=== PATIENT | male | born 1985 ===

== ENCOUNTER 2017-04-05 15:56 | Emergency (ER) | payer OTHER ==
[2017-04-05 16:29] VITALS: BP 120/77; PULSE 82; RESP 20; TEMP 98.5; O2SAT 97
[2017-04-05] MEDS ORDERED: Iohexol 240 (50 ml) PO ONE (18:16)
--- NOTE | 2017-04-05 18:20 | ED PDOC ---
HPI: Abdomen Time Seen by Provider: 04/05/17 17:52 Chief Complaint (Nursing): Abdominal Pain Chief Complaint (Provider): Vomiting History Per: Patient Additional Complaint(s): 32 yo male, no PMH, presents to ED with complaints of vomiting and a 50 lbs weight loss in the last 5 months. Pt reports that every time he eats, he vomits within 2 hours after. Pt denies any abdominal pain or nausea. Pt also notes an abdominal mass, which he believes to be a hernia- that comes and goes around his navel. Past Medical History Reviewed: Nursing Documentation, Vital Signs Vital Signs: Last Vital Signs Temp 98.5 F 04/05/17 16:25 Pulse 82 04/05/17 16:25 Resp 20 04/05/17 16:25 BP 120/77 04/05/17 16:25 Pulse Ox 97 04/05/17 18:23 - Medical History PMH: No Chronic Diseases - Surgical History Surgical History: No Surg Hx - Family History Family History: States: No Known Family Hx - Living Arrangements Living Arrangements: With Family - Social History Current smoker - smoking cessation education provided: Yes (1-2 ppd x 10 + years ) Alcohol: None Drugs: Denies - Allergies Allergies/Adverse Reactions: Allergies Allergy/AdvReac Type Severity Reaction Status Date / Time No Known Allergies Allergy Verified 04/05/17 16:25 Review of Systems ROS Statement: Except As Marked, All Systems Reviewed And Found Negative Constitutional: Positive for: Weight loss Gastrointestinal: Positive for: Vomiting Physical Exam - Reviewed Nursing Documentation Reviewed: Yes Vital Signs Reviewed: Yes - Physical Exam Appears: Positive for: Well, Non-toxic, No Acute Distress Head Exam: Positive for: ATRAUMATIC, NORMAL INSPECTION, NORMOCEPHALIC Skin: Positive for: Normal Color, Warm, DRY Eye Exam: Positive for: EOMI, Normal appearance, PERRL ENT: Positive for: Normal ENT Inspection Neck: Positive for: Normal, Painless ROM Cardiovascular/Chest: Positive for: Regular Rate, Rhythm Respiratory: Positive for: CNT, Normal Breath Sounds Gastrointestinal/Abdominal: Positive for: Normal Exam, Bowel Sounds, Soft, Hernia (small naima-umbilical ) Back: Positive for: Normal Inspection Extremity: Positive for: Normal ROM Neurologic/Psych: Positive for: Alert, Oriented - ECG O2 Sat by Pulse Oximetry: 97 Medical Decision Making Medical Decision Making: IV access established and diagnostics ordered. Pt denied nausea at this time, antipyretics withheld. 19:30- no labs resulted thus far. Pt tolerating PO contrast at this time. Case endorsed to LEONOR Moore at 20:00 pending diagnostic review and re-eval Disposition - Clinical Impression Clinical Impression: Weight loss, Vomiting - Patient ED Disposition Is Patient to be Admitted: No - Disposition Disposition: Transfer of Care ([facility]) Disposition Time: 19:26 Condition: STABLE - POA Present On Arrival: None
[2017-04-05] MEDS ORDERED: Iohexol 240 (50 ml) ONE (19:34)
[2017-04-05 20:06] LABS: BASO # 0.1 K/uL (0.0-0.2); BASO % 0.7 % (0.0-2.0); EOS # 0.2 K/uL (0.0-0.7); EOS % 3.1 % (0.0-4.0); HEMATOCRIT 46.9 % (35.0-51.0); LYMPH # 2.3 K/uL (1.0-4.3); LYMPH % 29.2 % (20.0-40.0); MEAN CORPUSCULAR HEMOGLOBIN 27.9 pg (27.0-31.0); MEAN CORPUSCULAR HGB CONC 32.8 g/dL (33.0-37.0); MEAN PLATELET VOLUME 8.8 fl (7.2-11.7); MONO # 0.7 K/uL (0.0-0.8); MONO % 8.6 % (0.0-10.0); NEUT # 4.7 K/uL (1.8-7.0); NEUT % 58.4 % (50.0-75.0); NRBC % 0.1 % (0.0-0.0); RED CELL DISTRIBUTION WIDTH 14.4 % (11.5-14.5)
[2017-04-05 20:11] LABS: ALB/GLOB RATIO 1.1 (1.0-2.1); ALKALINE PHOSPHATASE 81 U/L (38-126); ALT/SGPT 46 U/L (21-72); AMYLASE 101 U/L (30-110); AST/SGOT 37 U/L (17-59); BILIRUBIN,TOTAL 0.4 mg/dl (0.2-1.3); BLOOD UREA NITROGEN 10 mg/dl (9-20); CALCIUM 9.8 mg/dL (8.4-10.2); CARBON DIOXIDE 26 mmol/L (22-30); CHLORIDE 102 mmol/L (98-107); GFR AFRICAN-AMERICAN > 60; GLUCOSE,RANDOM 84 mg/dL (75-110); LIPASE 182 U/L (23-300); SODIUM 140 mmol/l (132-148); TOTAL PROTEIN 8.7 G/DL (6.3-8.2)
[2017-04-05 20:51] LABS: RBC URINE 5 /hpf (0-3); URINE BACTERIA RARE (<OCC); URINE BILIRUBIN NEGATIVE (NEGATIVE); URINE BLOOD NEGATIVE (NEGATIVE); URINE COLOR YELLOW (YELLOW); URINE GLUCOSE (UA) NEG (Normal); URINE KETONE NEGATIVE (NEGATIVE); URINE LEUKOCYTE ESTERASE NEG Leu/uL (Negative); URINE PROTEIN NEGATIVE (NEGATIVE); URINE UROBILINOGEN 0.2-1.0 mg/dL (0.2-1.0); WBC URINE 2 /hpf (0-5)
[2017-04-05] MEDS ORDERED: Sodium Chloride 0.9% 50 ML IV ONE (21:50)
[2017-04-05] MEDS ORDERED: Iohexol 300 100 ML IJ ONE (21:50)
--- NOTE | 2017-04-05 23:02 | ED PDOC ---
- Laboratory Results Result Diagrams: 04/05/17 19:50 04/05/17 19:50 - ECG O2 Sat by Pulse Oximetry: 97 - Progress ED Course And Treament: Case endorsed to typewriter ribbon winder from Leticia GALVEZ pending CT EXAM: CT Abdomen and Pelvis With Intravenous Contrast CLINICAL HISTORY: 32 years old, male; Pain; Abdominal pain; Periumbilical; Additional info: Vomiting, abdominal mass, 50 lb weight loss. Sent phy. Doc. With request TECHNIQUE: Axial computed tomography images of the abdomen and pelvis with intravenous contrast. This CT exam was performed using one or more of the following dose reduction techniques : automated exposure control, adjustment of the mA and/or kV according to patient size, and/ or use of iterative reconstruction technique. Coronal and sagittal reformatted images were created and reviewed. CONTRAST: 95 mL of [id number] administered intravenously. COMPARISON: No relevant prior studies available. FINDINGS: Lower thorax: The bilateral lung bases are clear. ABDOMEN: Liver: No acute findings. Fatty infiltration is identified. Gallbladder and bile ducts: The gallbladder is decompressed. No calcified stones. No significant intra- or extrahepatic biliary ductal dilation. Pancreas: Single phase evaluation of the pancreas is unremarkable, and enhances homogeneously. No ductal dilation. No discrete mass. Spleen: No acute findings. Adrenals: No acute findings. Kidneys and ureters: No acute findings. No hydronephrosis or renal calculi. No discrete solid mass. PELVIS: Bladder: No acute findings. Reproductive: No acute findings. Appendix: The contrast filled appendix is of normal caliber (series 3, image 122 ). ABDOMEN and PELVIS: Stomach and bowel: A fat and likely omental containing periumbilical hernia is identified, extending to the left of midline (series 3, image 118; series 602, image 95). Oral contrast extends to the level of the rectum, without evidence of obstruction. No mucosal thickening. Peritoneum: No significant fluid collection. No free air. Lymph nodes: Multiple minimally enlarged lymph nodes are identified within the retroperitoneum, as well as within the root of the mesentery, a nonspecific finding. Vasculature: Unremarkable. Bones: No acute fracture. IMPRESSION: Nonobstructing periumbilical hernia extending to the left of midline. Nonspecific enlargement of multiple lymph nodes within the retroperitoneum and root of the mesentery, as detailed above. Fatty infiltration of the liver. Thank you for allowing us to participate in the care of your patient. Patient educated on findings, advised follow up PMD/surgery. return to Ed for worsening/concerning symptoms. Disposition - Clinical Impression Clinical Impression: Weight loss, Vomiting, Periumbilical hernia - POA Present On Arrival: None - Disposition Referrals: Prem Tyler MD [Staff Provider] - Rinku Leija MD [Staff Provider] - Disposition: Routine/Home Disposition Time: 23:01 Condition: IMPROVED Instructions: Acute Nausea and Vomiting (ED), Ventral Hernia (ED)
--- NOTE | 2017-04-06 01:42 | CARD ---
APPROVED REPORT EKG Measurement Heart [id number] IL 184P33 [id number] <Conclusion> Normal sinus rhythm Possible Left atrial enlargement Borderline ECG
--- NOTE | 2017-04-06 09:55 | CT ---
PROCEDURE: CT Abdomen and pelvis dated 04/05/2017 HISTORY: vomiting, abdominal mass, 50 lb weight loss COMPARISON: Comparison made with CTA chest dated 12/11/2009 which did image the upper abdomen. TECHNIQUE: Contiguous axial images of the abdomen and pelvis performed following oral and intravenous injection of approximately 95 cc of Omnipaque 300 contrast material. Coronal and Sagittal reformats generated. Radiation dose: Total exam DLP = 1159.49 mGy-cm. This CT exam was performed using one or more of the following dose reduction techniques: Automated exposure control, adjustment of the mA and/or kV according to patient size, and/or use of iterative reconstruction technique. Contrast dose: 95 cc Omnipaque contrast material FINDINGS: LOWER THORAX: Lung bases are clear. No infiltrate effusion or basilar pneumothorax. There is a small hiatal hernia. Heart size within range of normal. No pericardial effusion. LIVER: Liver is mildly enlarged measuring nearly 20 cm in CC dimension. No obvious hepatic mass collection or calcification. There does appear to be mild diffuse fatty hepatic infiltration. Portal and splenic veins are opacified. GALLBLADDER AND BILE DUCTS: Gallbladder is physiologically distended. No evidence of intraluminal gallbladder calculi. PANCREAS: The visualized portions of the pancreas unremarkable. No evidence of pancreatic mass, collection, calcification or significant ductal dilatation. SPLEEN: Unremarkable. No splenomegaly. ADRENALS: No adrenal lesions. KIDNEYS AND URETERS: Kidneys demonstrate symmetric nephrograms. No evidence of nephrolithiasis or hydronephrosis. BLADDER: The urinary bladder is incompletely distended which may account slight thick-walled appearance. Muscular hypertrophy may contribute. Cystitis less likely though not completely excluded. Clinical correlation recommended. REPRODUCTIVE: Prostate gland and seminal vesicles unremarkable. APPENDIX: Normal-appearing appendix best seen on axial series 3 # 116- 133. BOWEL: Evaluation of the bowel is somewhat limited due to the incomplete opacification. The stomach is partially opacified though collapsed which presumably accounts for slight thick-walled appearance. Visualized loops of small bowel exhibit normal contour and caliber. No evidence acute mechanical small bowel obstruction. Oral contrast material has extended into the colon to the level of the rectum. There does appear to be a few scattered colonic diverticula along the sigmoid and distal descending colon. No radiographic evidence of acute diverticulitis. PERITONEUM: Unremarkable. No fluid collection. No free air. Small to medium sized fat containing umbilical hernia. There is also small fat containing right inguinal hernia. LYMPH NODES: There are multiple small to medium sized nonspecific retroperitoneal lymph nodes. In addition, a few small on to medium-sized nonspecific central mesenteric (root of mesentery and (lymph nodes are also seen VASCULATURE: Unremarkable. No aortic aneurysm. BONES: Mild multilevel degenerative spondylosis of the visualized lower thoracic and lumbar spine with a few scattered chronic appearing Schmorl's nodes. There are no acute compression fractures. OTHER FINDINGS: None. IMPRESSION: Mild hepatomegaly and fatty hepatic infiltration. There are a few scattered colonic diverticula arising from the sigmoid colon however no radiographic evidence of acute diverticulitis. Multiple small to medium-sized nonspecific retroperitoneal and mesenteric lymph nodes. Small to medium sized fat containing umbilical hernia. Small fat containing right inguinal hernia.
--- NOTE | 2017-04-06 11:36 | RAD ---
PROCEDURE: CHEST RADIOGRAPH, 1 VIEW HISTORY: abdominal pain COMPARISON: Comparison made with prior chest radiograph 12/19/2009 FINDINGS: LUNGS: Clear. PLEURA: No pneumothorax or pleural fluid seen. CARDIOVASCULAR: Heart appears upper limits of normal. OSSEOUS STRUCTURES: No significant abnormalities. VISUALIZED UPPER ABDOMEN: Normal. OTHER FINDINGS: None. IMPRESSION: No active disease.
== END 2017-04-05 23:15 | disposition home or self-care (01) ==
LOC: H.ER 15:56
DX: R11.10 Vomiting, unspecified (principal); K42.9 Umbilical hernia without obstruction or gangrene; R63.4 Abnormal weight loss; R10.9 Unspecified abdominal pain; F17.200 Nicotine dependence, unspecified, uncomplicated; R19.00 Intra-abdominal and pelvic swelling, mass and lump, unspecified site; K76.0 Fatty (change of) liver, not elsewhere classified

== ENCOUNTER 2018-04-22 10:48 | Inpatient (IN) | payer OTHER ==
[2018-04-22 11:28] VITALS: BMI 48.7
--- NOTE | 2018-04-22 11:42 | CP.PCM.PN ---
Subjective - Date & Time of Evaluation Date of Evaluation: 04/22/18 Time of Evaluation: 11:40 - Subjective Subjective: 33 year old male with no significant past medical history presenting to [facility] for surgical arthrodesis of his right ankle. Patient states that he sustained an ankle fracture about ten years ago which did not heal properly and has left his with residual pain and disability. He states that he has pain to the ankle with ambulation and also gets left ankle and foot pain due to overcompensation. Today he denies any severe pain, denies n/v/f/c/sob. Patient NPO since midnight yesterday. Objective - Vital Signs/Intake and Output Vital Signs (last 24 hours): Temp Pulse Resp BP Pulse Ox 98.2 F 93 H 20 128/86 94 L 04/22/18 11:20 04/22/18 11:22 04/22/18 11:20 04/22/18 11:20 04/22/18 11:20 - Constitutional Appears: Well, Non-toxic, No Acute Distress - Neurological Exam Neurological Exam: Oriented x3 - Psychiatric Exam Psychiatric exam: Normal Affect, Normal Mood - Additional Findings Additional findings: Right lower extremity exam DERMATOLGOGIC: Skin is intact, no open lesions or rashes present, skin color normal. VASCULAR: DP/PT pulses 2/4, DIRECTOR OF RADIO SERVICES<3 seconds, skin temperature within normal limits, there is pedal hair growth present, no edema of the foot or ankle present. NEUROLOGIC: Gross sensation and motor function intact ORTHOPEDIC: Negative pain on palpation to the foot or ankle at this time. No pain with passive or active ROM. Biomechanical exam: There is about 10 degrees of total ankle joint ROM, with crepitus noted. There is 20 degrees of STJ inversion, 10 degrees eversion present,without crepitus. Midfoot ROM is flexible with increased motion at the midtarsal joint. There is mild first ray hypermobility with jamming of the first MTP joint. Mild medial eminence present at first MTP. Lesser digits are mildly contracted but flexible. RCSP is 4 degrees everted. There is mild eversion upon stance. Gait is antalgic with inadequate ankle dorsiflexion ROM, there is abduction of the forefoot with medial arch collapse. Impression: severe post traumatic ankle arthritis. Patient to have right ankle arthrodesis Assessment and Plan - Assessment and Plan (Free Text) Assessment: 33 year old male with right ankle severe post traumatic arthritis Plan: Patient seen and evaluated, all questions answered. Patient aware and agreeable to procedure today All risks, benefits, complications and alternatives to surgical procedure discussed with patient, no guarantees given Patient NPO since midnight last night Patient to OR for right ankle arthrodedis
[2018-04-22] MEDS ORDERED: ceFAZolin IV 2 gm in Dextrose 2 GM/50 ML BAG IVPB ONE ×2 (11:53→13:13)
[2018-04-22] MEDS ORDERED: Bupivacaine 0.5% Inj(30mL) IJ ONE (11:53)
--- NOTE | 2018-04-22 11:53 | CP.SDSHP ---
Same Day Surgery H & P - History Proposed Procedure: Right ankle arthrodesis Pre-Op Diagnosis: Right ankle severe post traumatic arthritis - Previous Medical/Surgical History Previous Surgical History: None - Allergies Allergies: Allergies No Known Allergies Allergy (Verified 04/05/17 16:25) - Current Medications Current Medications: None - Physical Exam Vital Signs: Vital Signs 04/22/18 04/22/18 11:20 11:22 Temperature 98.2 F Pulse Rate 93 H 93 H Respiratory 20 Rate Blood Pressure 128/86 O2 Sat by Pulse 94 L Oximetry Mental Status: Alert & Oriented x3 Neuro: WNL Heart: WNL Lungs: WNL GI: WNL - Impression Impression: Patient to OR for right ankle arthrodesis Pt. Evaluated Today:Candidate for Anesthesia & Procedure: Yes - Date & Time Date: 04/22/18 Time: 11:52 Short Stay Discharge - Short Stay Discharge Admitting Diagnosis/Reason for Visit: M25.371/ M19.172/ S93.491A/ Disposition: HOME/ ROUTINE Referrals: FAMILY PROVIDER,NO [Primary Care Provider] -
--- NOTE | 2018-04-22 12:10 | CP.PCM.PN ---
Objective - Vital Signs/Intake and Output Vital Signs (last 24 hours): Temp Pulse Resp BP Pulse Ox 98.2 F 93 H 20 128/86 94 L 04/22/18 11:20 04/22/18 11:22 04/22/18 11:20 04/22/18 11:20 04/22/18 11:20 - Medications Medications: Current Medications Bupivacaine HCl (Marcaine 0.5%) 50 ml IJ ONCE ONE Stop: 04/22/18 11:54 Cefazolin Sodium/Dextrose (Ancef Iv 2 Gm Duplex) 2 gm in 50 mls @ 50 mls/hr IVPB ONCE ONE PRN Reason: Protocol Stop: 04/22/18 12:52
--- NOTE | 2018-04-22 12:10 | CP.SDSHP ---
Same Day Surgery H & P - Allergies Allergies: Allergies No Known Allergies Allergy (Verified 04/05/17 16:25) - Physical Exam Vital Signs: Vital Signs 04/22/18 04/22/18 11:20 11:22 Temperature 98.2 F Pulse Rate 93 H 93 H Respiratory 20 Rate Blood Pressure 128/86 O2 Sat by Pulse 94 L Oximetry Short Stay Discharge - Short Stay Discharge Admitting Diagnosis/Reason for Visit: M25.371/ M19.172/ S93.491A/ Disposition: HOME/ ROUTINE Referrals: FAMILY PROVIDER,NO [Primary Care Provider] -
[2018-04-22] MEDS ORDERED: Rocuronium 10 mg/ml (5 ml) ONE ×3 (12:55→14:49)
[2018-04-22] MEDS ORDERED: Midazolam 2 MG/2 ML VIAL ONE (12:55)
[2018-04-22] MEDS ORDERED: Propofol 10 mg/ml Inj (20 ML) ONE (12:55)
[2018-04-22] MEDS ORDERED: Succinylcholine 200 mg/10 ml Inj IV ONE (12:55)
[2018-04-22] MEDS ORDERED: Lidocaine 4% (Laryng-O-Jet) Kit MM ONE (12:59)
[2018-04-22] MEDS ORDERED: Lactated Ringer's 1,000 ML IV ONE ×4 (13:00→18:00)
[2018-04-22] MEDS ORDERED: Lidocaine 2% Inj (20ml) ONE (13:14)
[2018-04-22] MEDS ORDERED: Esmolol 100 mg/10ml Inj IV ONE (14:47)
[2018-04-22] MEDS ORDERED: Bupivacaine HCl 0.5% PF (30 ml) Inj ONE (16:10)
[2018-04-22] MEDS ORDERED: Cellulose Hemostat 2X3 Sheet TP ONE (17:23)
--- NOTE | 2018-04-22 19:22 | PCM.ANESB3 ---
Femoral Nerve Block - Femoral Nerve Block Date of Procedure: 04/22/18 Anesthesiologist: Imani Pre-Procedure Diagnosis: Right ankle severe post traumatic arthritis Post-Procedure Diagnosis: Same Procedure Performed: Femoral Nerve Block Right - Procedure Femoral Nerve Block: The procedure was explained to the patient that it is for the post-operative pain management. Consent was obtained after a thorough discussion with the patient regarding the benefits and possible complications of local anesthetic block of the femoral nerve at the inguinal crease area. The patient was brought to the operating room and standard monitors were applied. Time-out was held with the circulating nurse to confirm the correct surgery and the appropriate block. Under general anesthesia, patient was placed in supine position with fully extended lower extremities and the ___right groin exposed. The femoral artery was then carefully palpated. The ultrasound transducer was then applied to this area in the transverse plane and the femoral nerve was visualized lateral to the femoral artery and underneath the fascia iliaca. After thorough identification, the inguinal crease area was prepped with Chooraprep At this point, a #22 gauge Stimuplex 4-inch needle was inserted immediately lateral to the femoral artery pulse at the inguinal crease and advanced perpendicularly. The needle was inserted to the ultrasound transducer in-plane towards the femoral nerve in a [id number] direction. Needle advancement was performed carefully under direct ultrasound visualization. Nerve stimulator was used and twitch of the quadriceps muscle was obtained at current of _0.4____ MA. After negative aspiration, __2___cc of __0.25___% __bupivicaine was injected and this was followed with ___18___ cc of ___0.25____ % ___ bupivicaine . Under ultrasound guidance the local anesthetics were observed spreading below fascia iliaca and around the femoral nerve. The needle was removed intact. The patient tolerated the femoral nerve block well with stable vital signs and was prepared for emergence.
--- NOTE | 2018-04-22 19:23 | PCM.SURG1 ---
Surgeon's Initial Post Op Note - Surgeon's Notes Surgeon: Dr. Orellana Job Coaching: Dr. Campbell, Dr. Candelario, Dr. Mills Anesthesia Administered By: Dr. Quiroga Pre-Operative Diagnosis: right ankle severe post traumatic arthiritis with valgus milalignment Operative Findings: see dictation. materials: 2-0, 3-0, 4-0 vicryl, 3-0,4-0 nylon, 3cc of bone graft, internal fixation including screws and a plate Post-Operative Diagnosis: same Operation Performed: right ankle arthrodesis with plate and screw fixation with graft Specimen/Specimens Removed: none Estimated Blood Loss: EBL {In ML}: 500 Blood Products Given: N/A, Whole Blood Drains Used: No Drains Post-Op Condition: Fair Date of Surgery/Procedure: 04/22/18 Time of Surgery/Procedure: 19:25
--- NOTE | 2018-04-22 19:25 | PCM.ANESB2 ---
Popliteal Nerve Block - Popliteal Nerve Block Date of Procedure: 04/22/18 Anesthesiologist: Imani Pre-Procedure Diagnosis: Right ankle severe post traumatic arthritis Post-Procedure Diagnosis: Same Procedure Performed: Popliteal Nerve Block Right - Procedure Popliteal Nerve Block: This procedure was explained to the patient that it is for post-operative pain management. Consent was obtained after a thorough discussion with the patient regarding the benefits and possible complications of local anesthetic block of the sciatic nerve at the popliteal level. The patient was brought to the operating room and standard monitors are applied. Time-out was held with the circulating nurse to confirm the correct surgery and the appropriate block. Under general anesthesi, patient's operative leg was gently raised and supported and the groove in between the biceps femoris and vastus lateralis muscles was carefully palpated. The skin approximately 8cm above the popliteal crease was then marked. The ultrasound transducer was then applied to the posterior thigh approximately 8cm above the popliteal crease in the transverse plane and the sciatic nerve before its division was visualized lateral to the popliteal artery and in between the bicep femoris and semimembranosus/ semitendinosus muscles. After identification, the lateral portion of the thigh was prepped with Chloraprep. At this point, a # 21 gauge Stimuplex insulated 6 inch needle was inserted into pre-marked area and advanced in a perpendicular direction. The needle was inserted above the ultrasound transducer in-plane towards the sciatic nerve in a [id number] direction. Needle advancement was performed carefully under direct ultrasound visualization. Nerve stimulator was used and dorsiflexion of the __right___ foot was elicited at a current of __0.4___ MA. After repeated negative aspiration, _2____cc of ___0.5__ % ___bupivicaine was injected and this was flowed with ___23___ cc of __0.5____% __bupivicaine ___. Under ultrasound guidance the local anesthetics were observed surrounding sciatic nerve . The needle was removed intact. The patient tolerated the popliteal nerve block well with stable vital signs and was subsequently prepared for emergence.
[2018-04-22] MEDS ORDERED: HYDROmorphone 0.5 mg/0.5 ml ISec IVP PRN (19:31)
[2018-04-22] MEDS ORDERED: DiphenhydrAMINE 50 mg/ml Inj IVP PRN (19:31)
[2018-04-22] MEDS: Lactated Ringer's 1,000 ML IV SCH (21:23)
[2018-04-22 21:29] LABS: HEMOGLOBIN 13.5 g/dL (12.0-18.0)
--- NOTE | 2018-04-22 23:31 | CP.PCM.HP ---
History of Present Illness - History of Present Illness History of Present Illness: 33 yr old M with PMHx of right ankle fracture 10 yrs ago presented for surgery today due to severe right ankle arthritis with valgus malalignment. Denies chest pain, SOB, headache, dizziness, fevers or chills. Reports he has not seen a PMD in over 5 yrs (in the past saw Dr. Meier). Patient has no other complaints and denies any other PMHx. PMD: none Specialists: Paloma Weems (Podiatry) PMHx: none SurgHx: denies FMHx: mother has HTN and NIDDM, father hx unknown, siblings healthy SocHx: currenty tobacco use-14 pack yrs, denies Etoh or drugs Medications: denies Allergies: NKDA OR course: Triple arthrodesis of right ankle with ORIF, blood loss 500mL -placed in posterior splint, non weight bearing -Post-surgical H/H:13.5/41.1 Present on Admission - Present on Admission Any Indicators Present on Admission: No History of DVT/PE: No History of Uncontrolled Diabetes: No Urinary Catheter: No Decubitus Ulcer Present: No History Surgical Site Infection Following: None Review of Systems - Constitutional Constitutional: absent: Chills, Fever, Malaise - EENT Eyes: absent: Change in Vision, Diplopia Ears: absent: Decreased Hearing, Dizziness Nose/Mouth/Throat: absent: Nasal Congestion, Dysphagia, Neck Pain - Cardiovascular Cardiovascular: absent: Chest Pain, Dyspnea - Respiratory Respiratory: absent: Cough, Hemoptysis - Gastrointestinal Gastrointestinal: absent: Abdominal Pain, Nausea, Vomiting - Genitourinary Genitourinary: absent: Difficulty Urinating, Dysuria - Musculoskeletal Musculoskeletal: Arthralgias (right ankle) - Integumentary Integumentary: absent: Bleeding Lesions, Skin Ulcer, Wounds - Neurological Neurological: absent: Confusion, Dizziness, Headaches, Weakness - Endocrine Endocrine: absent: Polyphagia, Polyuria - Hematologic/Lymphatic Hematologic: absent: Easy Bleeding, Easy Bruising Past Patient History - Past Medical History & Family History Past Medical History?: No - Past Social History Smoking Status: Heavy Smoker > 10 Cigarettes Daily (14 pack yrs) Alcohol: None Drugs: Denies Home Situation {Lives}: With Family - CARDIAC Hx Cardiac Disorders: No - PULMONARY Hx Respiratory Disorders: No - NEUROLOGICAL Hx Neurological Disorder: No - HEENT Hx HEENT Problems: No - RENAL Hx Chronic Kidney Disease: No - ENDOCRINE/METABOLIC Hx Endocrine Disorders: No - HEMATOLOGICAL/ONCOLOGICAL Hx Blood Disorders: No - INTEGUMENTARY Hx Dermatological Problems: No - MUSCULOSKELETAL/RHEUMATOLOGICAL Hx Musculoskeletal Disorders: No - GASTROINTESTINAL Hx Gastrointestinal Disorders: No - GENITOURINARY/GYNECOLOGICAL Hx Genitourinary Disorders: No - PSYCHIATRIC Hx Psychophysiologic Disorder: No - SURGICAL HISTORY Hx Surgeries: No - ANESTHESIA Hx Anesthesia: No Hx Anesthesia Reactions: No Meds Allergies/Adverse Reactions: Allergies Allergy/AdvReac Type Severity Reaction Status Date / Time No Known Allergies Allergy Verified 04/05/17 16:25 Physical Exam - Constitutional Appears: No Acute Distress (obese) - Head Exam Head Exam: ATRAUMATIC, NORMOCEPHALIC - Eye Exam Eye Exam: EOMI, PERRL - ENT Exam ENT Exam: Mucous Membranes Moist - Neck Exam Neck exam: Positive for: Full Rom - Respiratory Exam Respiratory Exam: Clear to Auscultation Bilateral. absent: Rhonchi, Wheezes - Cardiovascular Exam Cardiovascular Exam: REGULAR RHYTHM, +S1, +S2 - GI/Abdominal Exam GI & Abdominal Exam: Normal Bowel Sounds, Soft (obese). absent: Tenderness - Extremities Exam Extremities exam: Positive for: full ROM (,normal exam of left foot) Additional comments: right foot in posterior splint, wrapped in SHABANA bandage - Back Exam Back exam: absent: CVA tenderness (L), CVA tenderness (R) - Neurological Exam Neurological exam: Alert, CN II-XII Intact (grossly intact), Oriented x3 - Psychiatric Exam Psychiatric exam: Normal Affect, Normal Mood - Skin Skin Exam: Dry, Intact, Normal Color, Warm Results - Vital Signs Recent Vital Signs: Last Vital Signs Temp 99.6 F 04/22/18 19:22 Pulse 113 H 04/22/18 23:00 Resp 25 H 04/22/18 23:00 BP 101/71 04/22/18 23:00 Pulse Ox 97 04/22/18 23:00 - Labs Result Diagrams: 04/22/18 21:24 Labs: Laboratory Results - last 24 hr 04/22/18 21:24 Hgb 13.5 Hct 41.1 Assessment & Plan - Assessment and Plan (Free Text) Assessment: 33 yr old M admitted s/p Triple arthrodesis of right ankle with ORIF with PMHx of right ankle fracture with severe right ankle arthritis and valgus malalignment. 1. Severe right ankle arthritis with valgus malalignment -POD # 0 s/p Triple arthrodesis of right ankle with ORIF -blood loss 500mL, Post-surgical H/H:13.5/41.1 -admit to medr -placed in posterior splint, non weight bearing with crutches, PT -will follow podiatry recommendation: Cefazolin 2g IV Q8, Tylenol 650mg PO Q4 PRN mild pain, ice and elevate, regular diet 2. DVT prophylaxis -Lovenox 40mg SC QD - Date & Time Date: 04/22/18 Time: 21:50
[2018-04-23] MEDS ORDERED: Oxycodone/Acetaminophen 5/325 mg Tab PO PRN (04:27)
[2018-04-23] MEDS: Oxycodone/Acetaminophen 5/325 mg Tab PO PRN ×3 (04:36→22:20)
[2018-04-23] MEDS: Lactated Ringer's 1,000 ML IV SCH (04:38)
[2018-04-23 08:24] LABS: BASO % 0.2 % (0.0-2.0); EOS # 0.1 K/uL (0.0-0.7); EOS % 0.5 % (0.0-4.0); HEMOGLOBIN 12.3 g/dL (12.0-18.0); MEAN CELL VOLUME 82.7 fl (80.0-94.0); MEAN CORPUSCULAR HEMOGLOBIN 27.6 pg (27.0-31.0); MEAN CORPUSCULAR HGB CONC 33.4 g/dL (33.0-37.0); MEAN PLATELET VOLUME 8.4 fl (7.2-11.7); MONO # 1.1 K/uL (0.0-0.8); MONO % 9.7 % (0.0-10.0); NEUT # 7.9 K/uL (1.8-7.0); NEUT % 71.6 % (50.0-75.0); NRBC % 0.1 % (0.0-0.0); RBC 4.45 Mil/uL (4.40-5.90)
[2018-04-23 08:33] LABS: ALB/GLOB RATIO 0.8 (1.0-2.1); ALBUMIN 3.1 g/dL (3.5-5.0); ALT/SGPT 39 U/L (21-72); AST/SGOT 45 U/L (17-59); BLOOD UREA NITROGEN 13 mg/dl (9-20); CALCIUM 8.5 mg/dL (8.4-10.2); GFR AFRICAN-AMERICAN > 60; GFR NON-AFRICAN AMERICAN > 60
[2018-04-23] MEDS ORDERED: Pneumococcal 23-Valent Vaccine IM ONE (09:00)
[2018-04-23] MEDS: ceFAZolin IV 2 gm in Dextrose 2 GM/50 ML BAG IVPB SCH ×2 (09:57→17:08)
--- NOTE | 2018-04-23 11:25 | RAD ---
PROCEDURE: Right Ankle Radiographs. HISTORY: s/p right ankle surgery COMPARISON: Comparison is made to the previous study dated 06/16/2009 FINDINGS: BONES: Status post internal fixation and fusion of the right tibiotalar joint by metallic plate and multiple screws at the anterior aspect of the joint. JOINTS: No evidence of dislocation. SOFT TISSUES: Soft tissue swelling is noted. OTHER FINDINGS: The right ankle is in cast. IMPRESSION: Status post internal fixation and fusion of the right talotibial joint.
--- NOTE | 2018-04-23 12:39 | CP.PCM.PN ---
Subjective - Date & Time of Evaluation Date of Evaluation: 04/23/18 Time of Evaluation: 12:39 - Subjective Subjective: 33 yr old M POD1 s/p Triple arthrodesis of right ankle with ORIF with PMHx of right ankle fracture with severe right ankle arthritis and valgus malalignment. Doing well today. Pain controlled. Eating breakfast. No complaints today, eager to start PT today. Objective - Vital Signs/Intake and Output Vital Signs (last 24 hours): Temp Pulse Resp BP Pulse Ox 98.1 F 91 H 20 125/81 96 04/23/18 08:51 04/23/18 08:51 04/23/18 08:51 04/23/18 08:51 04/23/18 08:51 - Medications Medications: Current Medications Acetaminophen (Tylenol 325mg Tab) 650 mg PO Q4 PRN PRN Reason: Pain, Mild (1-3) Enoxaparin Sodium (Lovenox) 40 mg SC DAILY TR PRN Reason: Protocol Cefazolin Sodium/Dextrose (Ancef Iv 2 Gm Duplex) 2 gm in 50 mls @ 50 mls/hr IVPB Q8 TR PRN Reason: Protocol Last Admin: 04/23/18 09:57 Dose: 50 mls/hr Oxycodone/Acetaminophen (Percocet 5/325 Mg Tab) 1 tab PO Q4 PRN PRN Reason: Pain, moderate (4-7) Stop: 04/26/18 04:28 Oxycodone/Acetaminophen (Percocet 5/325 Mg Tab) 2 tab PO Q6 PRN PRN Reason: Pain, severe (8-10) Stop: 04/26/18 04:29 Last Admin: 04/23/18 04:36 Dose: 2 tab - Labs Labs: 04/23/18 06:00 04/23/18 06:00 - Constitutional Appears: No Acute Distress - Head Exam Head Exam: ATRAUMATIC - Eye Exam Eye Exam: EOMI - ENT Exam ENT Exam: Mucous Membranes Moist - Neck Exam Neck Exam: Full ROM - Respiratory Exam Respiratory Exam: Clear to Ausculation Bilateral - Cardiovascular Exam Cardiovascular Exam: +S1, +S2 - GI/Abdominal Exam GI & Abdominal Exam: Soft - Extremities Exam Additional comments: right cast in place Able to move toes, sensation, intact n RLE - Neurological Exam Neurological Exam: Alert, Awake, CN II-XII Intact Neuro motor strength exam: Left Upper Extremity: 5, Right Upper Extremity: 5, Left Lower Extremity: 5 - Skin Skin Exam: Dry, Intact, Warm Assessment and Plan - Assessment and Plan (Free Text) Plan: 33 yr old M admitted s/p Triple arthrodesis of right ankle with ORIF with PMHx of right ankle fracture with severe right ankle arthritis and valgus malalignment. 1. Severe right ankle arthritis with valgus malalignment -POD # 1 s/p Triple arthrodesis of right ankle with ORIF -blood loss 500mL, Post-surgical H/H:13.5/41.1 -placed in posterior splint, non weight bearing with crutches, PT -will follow podiatry recommendation: Cefazolin 2g IV Q8, Tylenol 650mg PO Q4 PRN mild pain, ice and elevate, regular diet 2. DVT prophylaxis -Lovenox 40mg SC QD
--- NOTE | 2018-04-23 13:06 | CP.PCM.PN ---
Subjective - Date & Time of Evaluation Date of Evaluation: 04/23/18 Time of Evaluation: 13:06 - Subjective Subjective: Podiatry - Dr. Orellana 33 year old male seen and evaluated at bedside POD#1 right ankle arthrodesis ( DOS 04/22/18). Mother present at bedside. No acute events overnight. Patient states he was able to sleep well through the night, only had 1 short episode of pain. At present, patient states his leg is still numb from block; pain well- controlled. AO splint to RLE remains clean/dry/intact, elevated on pillows. Tolerating PO diet. States he has not had a BM yet. Denies N/V/F/D/C/SOB. Objective - Vital Signs/Intake and Output Vital Signs (last 24 hours): Temp Pulse Resp BP Pulse Ox 98.1 F 101 H 20 125/81 97 04/23/18 08:51 04/23/18 11:05 04/23/18 08:51 04/23/18 08:51 04/23/18 11:05 - Medications Medications: Current Medications Acetaminophen (Tylenol 325mg Tab) 650 mg PO Q4 PRN PRN Reason: Pain, Mild (1-3) Enoxaparin Sodium (Lovenox) 40 mg SC DAILY TR PRN Reason: Protocol Cefazolin Sodium/Dextrose (Ancef Iv 2 Gm Duplex) 2 gm in 50 mls @ 50 mls/hr IVPB Q8 TR PRN Reason: Protocol Last Admin: 04/23/18 09:57 Dose: 50 mls/hr Oxycodone/Acetaminophen (Percocet 5/325 Mg Tab) 1 tab PO Q4 PRN PRN Reason: Pain, moderate (4-7) Stop: 04/26/18 04:28 Oxycodone/Acetaminophen (Percocet 5/325 Mg Tab) 2 tab PO Q6 PRN PRN Reason: Pain, severe (8-10) Stop: 04/26/18 04:29 Last Admin: 04/23/18 04:36 Dose: 2 tab - Labs Labs: 04/23/18 06:00 04/23/18 06:00 - Constitutional Appears: Well, Non-toxic, No Acute Distress - Extremities Exam Additional comments: AO splint clean/dry/intact NVSI to digits No pain upon calf squeeze - Neurological Exam Neurological Exam: Alert, Awake, Oriented x3 - Psychiatric Exam Psychiatric exam: Normal Affect, Normal Mood Assessment and Plan - Assessment and Plan (Free Text) Assessment: 33 year old male POD#1 right ankle arthrodesis (DOS 04/22/18) Plan: Patient seen and evaluated Discussed with attending, Dr. Orellana Febrile overnight Tmax 101.1, WBC 11.0; likely reactive - will continue to monitor R ankle XR: s/p talotibial fusion Ancef - dc after 3 doses Anticoagulation - Lovenox 40mg SC AO splint maintained - plan to change tomorrow Continue ice and elevation Encourage use of incentive spirometer 10x/hour PT consulted, NWB RLE with crutches -Patient refused today Podiatry will continue to follow
[2018-04-23] MEDS: Enoxaparin 40 mg Syringe SC SCH (16:02)
[2018-04-24] MEDS: ceFAZolin IV 2 gm in Dextrose 2 GM/50 ML BAG IVPB SCH ×2 (00:38→08:43)
[2018-04-24] MEDS: Oxycodone/Acetaminophen 5/325 mg Tab PO PRN ×3 (05:50→22:20)
[2018-04-24 07:43] LABS: ALB/GLOB RATIO 0.8 (1.0-2.1); ALBUMIN 3.2 g/dL (3.5-5.0); ALT/SGPT 36 U/L (21-72); AST/SGOT 55 U/L (17-59); BLOOD UREA NITROGEN 11 mg/dl (9-20); CALCIUM 8.3 mg/dL (8.4-10.2); GFR AFRICAN-AMERICAN > 60; GFR NON-AFRICAN AMERICAN > 60
[2018-04-24] MEDS: Enoxaparin 40 mg Syringe SC SCH (08:41)
[2018-04-24 08:48] LABS: HEMOGLOBIN 11.5 g/dL (12.0-18.0); MEAN CELL VOLUME 83.3 fl (80.0-94.0); MEAN CORPUSCULAR HEMOGLOBIN 27.5 pg (27.0-31.0); RBC 4.17 Mil/uL (4.40-5.90); RED CELL DISTRIBUTION WIDTH 14.2 % (11.5-14.5)
--- NOTE | 2018-04-24 11:52 | CP.PCM.PN ---
Subjective - Date & Time of Evaluation Date of Evaluation: 04/24/18 Time of Evaluation: 11:52 - Subjective Subjective: Podiatry - Dr. Orellana 33 year old male seen and evaluated at bedside POD#2 right ankle arthrodesis ( DOS 04/22/18). Friend present at bedside. No acute events overnight. Patient states he was able to tolerate pain after block subsided. Per nursing, patient unable to participate in physical therapy yesterday. AO splint to RLE remains clean/dry/intact, elevated on pillows. Tolerating PO diet. Denies N/V/F/D/C/SOB. Objective - Vital Signs/Intake and Output Vital Signs (last 24 hours): Temp Pulse Resp BP Pulse Ox 98.6 F 58 L 20 134/78 97 04/24/18 08:35 04/24/18 08:35 04/24/18 08:35 04/24/18 08:35 04/24/18 08:35 - Medications Medications: Current Medications Acetaminophen (Tylenol 325mg Tab) 650 mg PO Q4 PRN PRN Reason: Pain, Mild (1-3) Last Admin: 04/24/18 10:59 Dose: 650 mg Enoxaparin Sodium (Lovenox) 40 mg SC DAILY TR PRN Reason: Protocol Last Admin: 04/24/18 08:41 Dose: 40 mg Oxycodone/Acetaminophen (Percocet 5/325 Mg Tab) 1 tab PO Q4 PRN PRN Reason: Pain, moderate (4-7) Stop: 04/26/18 04:28 Oxycodone/Acetaminophen (Percocet 5/325 Mg Tab) 2 tab PO Q6 PRN PRN Reason: Pain, severe (8-10) Stop: 04/26/18 04:29 Last Admin: 04/24/18 05:50 Dose: 2 tab - Labs Labs: 04/24/18 05:30 04/24/18 05:30 - Constitutional Appears: Well, Non-toxic, No Acute Distress - Extremities Exam Additional comments: Right lower extremity exam DERMATOLGOGIC: Incisions noted to anterior ankle, lateral ankle, and medial ankle appear to be well-coapted with sutures intact and no wound dehiscence noted; no drainage present; minimal erythema present. VASCULAR: DP pulse 2/4, PT pulse nonpalpable secondary to edema, [employer]<3 seconds, skin temperature within normal limits, there is pedal hair growth present, non- pitting edema noted to ankle extending distally into digits NEUROLOGIC: Gross sensation and motor function intact ORTHOPEDIC: s/p ankle fusion. Digital ROM present. Tenderness to palpation to incision sites. - Neurological Exam Neurological Exam: Alert, Awake, Oriented x3 - Psychiatric Exam Psychiatric exam: Normal Affect, Normal Mood Assessment and Plan - Assessment and Plan (Free Text) Assessment: 33 year old male POD#2 right ankle arthrodesis (DOS 04/22/18) Plan: Patient seen and evaluated Discussed with attending, Dr. Orellana Afebrile, WBC 8.0 R ankle XR: s/p talotibial fusion Completed course of Ancef Anticoagulation - Lovenox 40mg SC AO splint reapplied Continue ice and elevation Encourage use of incentive spirometer 10x/hour PT consulted, NWB RLE with crutches -Patient refused yesterday, will encourage PT tomorrow Patient to follow up with Dr. Orellana in office within 1 week of discharge Podiatry will continue to follow
--- NOTE | 2018-04-24 12:04 | CP.PCM.PN ---
Subjective - Date & Time of Evaluation Date of Evaluation: 04/24/18 Time of Evaluation: 09:55 - Subjective Subjective: Patient seen and examined this morning, POD2. NAD, patient was walking back from bathroom to bed, had a BM. Patient denies any acute events over night, tolerating PO intake, denies any fever/c/n/v, chest pain, dizziness, SOB, abdominal pain or urinary symptoms. Pain is well controlled. Objective - Vital Signs/Intake and Output Vital Signs (last 24 hours): Temp Pulse Resp BP Pulse Ox 98.6 F 58 L 20 134/78 97 04/24/18 08:35 04/24/18 08:35 04/24/18 08:35 04/24/18 08:35 04/24/18 08:35 - Medications Medications: Current Medications Acetaminophen (Tylenol 325mg Tab) 650 mg PO Q4 PRN PRN Reason: Pain, Mild (1-3) Last Admin: 04/24/18 10:59 Dose: 650 mg Enoxaparin Sodium (Lovenox) 40 mg SC DAILY TR PRN Reason: Protocol Last Admin: 04/24/18 08:41 Dose: 40 mg Oxycodone/Acetaminophen (Percocet 5/325 Mg Tab) 1 tab PO Q4 PRN PRN Reason: Pain, moderate (4-7) Stop: 04/26/18 04:28 Oxycodone/Acetaminophen (Percocet 5/325 Mg Tab) 2 tab PO Q6 PRN PRN Reason: Pain, severe (8-10) Stop: 04/26/18 04:29 Last Admin: 04/24/18 05:50 Dose: 2 tab - Labs Labs: 04/24/18 05:30 04/24/18 05:30 - Constitutional Appears: No Acute Distress - Head Exam Head Exam: NORMAL INSPECTION - Eye Exam Eye Exam: Normal appearance - ENT Exam ENT Exam: Mucous Membranes Moist - Neck Exam Neck Exam: Normal Inspection - Respiratory Exam Respiratory Exam: Clear to Ausculation Bilateral, NORMAL BREATHING PATTERN - Cardiovascular Exam Cardiovascular Exam: REGULAR RHYTHM, +S1, +S2 - GI/Abdominal Exam GI & Abdominal Exam: Soft, Normal Bowel Sounds - Extremities Exam Additional comments: Right cast in place Able to move toes, Decreased sensory right toes - Back Exam Back Exam: absent: CVA tenderness (L), CVA tenderness (R) - Neurological Exam Neurological Exam: Alert, Awake, Oriented x3 - Psychiatric Exam Psychiatric exam: Normal Affect - Skin Skin Exam: Dry, Intact, Normal Color, Warm Assessment and Plan - Assessment and Plan (Free Text) Assessment: A/P: 33 yr old M admitted s/p POD2, Triple arthrodesis of right ankle with ORIF with PMHx of right ankle fracture with severe right ankle arthritis and valgus malalignment. Severe right ankle arthritis with valgus malalignment -POD # 2 s/p Triple arthrodesis of right ankle with ORIF -S/p Nerve block -H/H:11.5/34.7 -S/p Cefazolin -placed in posterior splint, non weight bearing with crutches, follow up PT, possible dressing change today -will follow podiatry recommendation: Percocet, Tylenol 650mg PO Q4 PRN mild pain, ice and elevate, regular diet, Incentive SpiroM -Continue pain management DVT prophylaxis -Lovenox 40mg SC
[2018-04-25 06:18] LABS: HEMOGLOBIN 11.8 g/dL (12.0-18.0); MEAN CELL VOLUME 83.2 fl (80.0-94.0); MEAN CORPUSCULAR HEMOGLOBIN 28.3 pg (27.0-31.0); RBC 4.17 Mil/uL (4.40-5.90); RED CELL DISTRIBUTION WIDTH 13.9 % (11.5-14.5); WHITE BLOOD COUNT 6.3 K/uL (4.8-10.8)
[2018-04-25 06:26] LABS: ALB/GLOB RATIO 0.8 (1.0-2.1); ALBUMIN 3.5 g/dL (3.5-5.0); ALT/SGPT 39 U/L (21-72); AST/SGOT 56 U/L (17-59); BLOOD UREA NITROGEN 10 mg/dl (9-20); CALCIUM 8.9 mg/dL (8.4-10.2); GFR AFRICAN-AMERICAN > 60; GFR NON-AFRICAN AMERICAN > 60
--- NOTE | 2018-04-25 07:38 | OP ---
PROCEDURE DATE: 04/22/2018 PREOPERATIVE DIAGNOSIS: Right ankle posttraumatic arthritis. POSTOPERATIVE DIAGNOSIS: Right ankle posttraumatic arthritis. NAME OF PROCEDURE: Right ankle arthrodesis. SURGEON: Paloma Orellana DPM CONTINUOUS IMPROVEMENT ENGINEER: Daniela Campbell DPM TYPE OF ANESTHESIA: General. ANESTHESIA ADMINISTERED BY: Colt Quiroga MD INDICATION: The patient is a 33-year-old male with the above-mentioned diagnosis. The patient has exhausted conservative treatments at this time and is now requesting surgical intervention. The patient signed the consent. After careful explanation of risks, benefits, complications, and alternatives for surgical procedure, no guarantees were given nor implied. A 2 g of Ancef IV was given to the patient prior to the procedure, n.p.o. status was confirmed prior to taking the patient to the operating room. PREPARATION: The patient was brought to the operating room and placed on the operating room table in supine position. A well-padded pneumatic thigh tourniquet was placed on the patient's right thigh. After induction of sedation, the right lower extremity was prepped and draped in usual sterile manner and the procedure began. PROCEDURE: Right ankle arthrodesis. Attention was directed to the anterior aspect of the right ankle where an approximately 10 cm linear longitudinal incision was created as the anterior aspect of the ankle joint located between the tibialis anterior and the extensor hallucis longus tendon. The incision began proximal to the ankle joint and extended distally towards the talonavicular joint. The incision was given to the subcutaneous tissues with care being taken to identify and retract all vital neurovascular structures. All bleeders were cauterized and ligated as necessary. At this time, a longitudinal incision was created just lateral to the tibialis anterior tendon, the tendon was then mobilized medially and the incision was deepened through the layer of tissue. All the neurovascular structures were carefully tied or retracted. Once this was completed, a linear capsular incision was created, the capsular structures were retracted medially and laterally thus exposing the ankle joint intraoperative site. Using a Hoang elevator, the capsular incision was then freed up all the way medially and all the way laterally exposing the medial lateral gutters into the operative field. Once this was complete, full visualization of the anterior ankle joint was achieved. At this time, the retractor from the [employer] was used, this was placed on the medial aspect of the ankle and the ankle was carefully distracted in order to provide access to the joint. It was noted that the joint was in a severe valgus malalignment with syndesmotic widening as well as decreased joint space being present. The articular cartilage was severely damaged. At this time, curved osteotomes were used to carefully remove the articular cartilage from the talus and the tibial plafond. This process was augmented using a large curette. Once this process was completed, the medial lateral gutters were examined. The medial lateral gutters were thoroughly divided of all articular cartilage as well as all fibrous tissue and ligamentous structure, which were in the way of positioning the ankle. Once all this was completed, the ankle was manipulated under C-arm guidance into a neutral position with the talus underneath the tibia at 90 degrees. Once this was achieved, a K-wire was driven from proximal medial to distal lateral from the tibia to the talus in order to serve as a guidewire. Once this was done, a second guidewire was inserted from lateral to medial. The positioning of the ankle was checked under fluoroscopy and was noted to be in proper position. Next, the first guidewire was overdrilled with the drill from the 6.5 cannulated [employer] . Once this was done, countersink was performed and the screw size was measured to be a 50 mm 6.5 headed screw. The screw was inserted over the guidewire with excellent compression of the . Once this was done, positioning was then again checked under fluoroscopy and it was noted to be maintained. At this time, the [employer] universal anterior fusion plate was selected from the . The plate was provisionally locked on to the ankle using and positioning was checked under fluoroscopy. Once proper positioning was obtained, locking and nonlocking screws were inserted following standard AO principles and techniques. A 4.5 locking screws measuring 40 mm, 45 mm, and 36 mm were inserted as well as a nonlocking 3.5 26 mm screw. Prior to putting the plate on the ankle, [employer] Augment was inserted into the ankle joint as well. Following application of plate and all the screws, the guidewires were removed. The wound was copiously irrigated with normal sterile saline. The deep tissues were closed using 2-0 Vicryl, subcuticular closure was done using 3-0 Vicryl, and skin was closed using 3-0 nylon in simple suture fashion. The skin was dressed using Xeroform, 4x4's, ABD, Kerlix, and a posterior splint was applied. POSTOPERATIVE CONDITION: The patient tolerated the anesthesia and procedure well and was escorted to the recovery room with vital signs stable and neurovascular status intact to the right lower extremity. This patient will be admitted and followed carefully on the floor by Dr. Orellana. Daniela Campbell DPM Paloma Orellana DPM
[2018-04-25 08:04] VITALS: BP 130/84; PULSE 84; RESP 20; TEMP 97.9; O2SAT 97
[2018-04-25] MEDS: Enoxaparin 40 mg Syringe SC SCH (08:53)
--- NOTE | 2018-04-25 09:15 | CP.PCM.PN ---
Subjective - Date & Time of Evaluation Date of Evaluation: 04/25/18 Time of Evaluation: 08:30 - Subjective Subjective: Patient seen and examined this morning. Objective - Vital Signs/Intake and Output Vital Signs (last 24 hours): Temp Pulse Resp BP Pulse Ox 97.9 F 84 20 130/84 97 04/25/18 08:02 04/25/18 08:02 04/25/18 08:02 04/25/18 08:02 04/25/18 08:02 - Medications Medications: Current Medications Acetaminophen (Tylenol 325mg Tab) 650 mg PO Q4 PRN PRN Reason: Pain, Mild (1-3) Last Admin: 04/25/18 07:19 Dose: 650 mg Enoxaparin Sodium (Lovenox) 40 mg SC DAILY TR PRN Reason: Protocol Last Admin: 04/25/18 08:53 Dose: 40 mg Oxycodone/Acetaminophen (Percocet 5/325 Mg Tab) 1 tab PO Q4 PRN PRN Reason: Pain, moderate (4-7) Stop: 04/26/18 04:28 Oxycodone/Acetaminophen (Percocet 5/325 Mg Tab) 2 tab PO Q6 PRN PRN Reason: Pain, severe (8-10) Stop: 04/26/18 04:29 Last Admin: 04/24/18 22:20 Dose: 2 tab - Labs Labs: 04/25/18 06:00 04/25/18 06:00
--- NOTE | 2018-04-25 10:56 | RAD ---
PROCEDURE: Fluoroscopy in excess of 1 hour HISTORY: ANKLE COMPARISON: Open reduction internal fixation/ fusion right tibiotalar joint. TECHNIQUE: Standard protocol for this study/examination. FINDINGS: Submitted images from the current procedure: 28.0 IMPRESSION: Open reduction procedure fluoroscopy in excess of 1 hour utilize.
--- NOTE | 2018-04-25 11:23 | CP.PCM.PN ---
Subjective - Date & Time of Evaluation Date of Evaluation: 04/25/18 Time of Evaluation: 13:00 - Subjective Subjective: Podiatry Progress Note- Dr. Orellana 33 year old male seen and evaluated at bedside POD#3 right ankle arthrodesis ( DOS 04/22/18). Friend present at bedside during visitation. Patient is laying comfortably in bed, in NAD, and AAOx3. Patient reports that his pain has decreased, rating his pain 0/10 on the VAS scale during visitation. Patient reports he has been taking Tylenol which has been helped. Patient reports he was seen by physical therapy. Reports he did well. Was able to ambulate, NWB with crutches. AO splint to RLE remains clean/dry/intact, elevated on pillows. Tolerating PO diet. Denies N/V/F/D/C/SOB/CP. Objective - Vital Signs/Intake and Output Vital Signs (last 24 hours): Temp Pulse Resp BP Pulse Ox 97.9 F 84 20 130/84 97 04/25/18 08:02 04/25/18 08:02 04/25/18 08:02 04/25/18 08:02 04/25/18 08:02 - Medications Medications: Current Medications Acetaminophen (Tylenol 325mg Tab) 650 mg PO Q4 PRN PRN Reason: Pain, Mild (1-3) Last Admin: 04/25/18 07:19 Dose: 650 mg Enoxaparin Sodium (Lovenox) 40 mg SC DAILY TR PRN Reason: Protocol Last Admin: 04/25/18 08:53 Dose: 40 mg Oxycodone/Acetaminophen (Percocet 5/325 Mg Tab) 1 tab PO Q4 PRN PRN Reason: Pain, moderate (4-7) Stop: 04/26/18 04:28 Oxycodone/Acetaminophen (Percocet 5/325 Mg Tab) 2 tab PO Q6 PRN PRN Reason: Pain, severe (8-10) Stop: 04/26/18 04:29 Last Admin: 04/24/18 22:20 Dose: 2 tab - Labs Labs: 04/25/18 06:00 04/25/18 06:00 - Constitutional Appears: Well, Non-toxic, No Acute Distress - Extremities Exam Extremities Exam: absent: Calf Tenderness Additional comments: AO splint clean/dry/intact NVSI to digits, able to wiggle toes No pain upon calf squeeze Temperature WNL - Neurological Exam Neurological Exam: Alert, Awake, Oriented x3 - Psychiatric Exam Psychiatric exam: Normal Affect, Normal Mood Assessment and Plan - Assessment and Plan (Free Text) Assessment: 33 year old male POD#3 right ankle arthrodesis (DOS 04/22/18) Plan: Patient seen and evaluated Discussed with attending, Dr. Orellana Afebrile, WBC 6.3 R ankle XR: s/p talotibial fusion Completed course of Ancef Anticoagulation - Lovenox 40mg SC while in house Continue ice and elevation Encourage use of incentive spirometer 10x/hour, explained to patient to continue when at home NWB RLE with crutches Do not get wet, keep clean dry and intact Seen by PT today- Pt did well. Per PT, patient is safe for discharge home from PT perspect Patient was given scripts for outpatient antibiotics, Lovenox 40 mg SC, and pain medication by Dr. Orellana in her office prior to surgery Instructed patient to fill scripts today, educated on use, and to start tomorrow. Patient is stable per podiatry standpoint for discharge Patient to follow up with Dr. Orellana in office within 1 week of discharge in her office
--- NOTE | 2018-04-25 15:18 | CP.PCM.DIS ---
Provider - Provider Date of Admission: 04/22/18 21:53 Attending physician: Lisa Carson MD Primary care physician: NO FAMILY PROVIDER Consults: None Time Spent in preparation of Discharge (in minutes): 40 Diagnosis - Discharge Diagnosis (1) Arthritis of right ankle Status: Chronic (2) Valgus deformity, not elsewhere classified, right ankle Status: Chronic (3) S/P ankle arthrodesis Status: Acute Comment: Right Ankle Hospital Course - Lab Results Lab Results: Most Recent Lab Values WBC 6.3 K/uL (4.8-10.8) 04/25/18 06:00 RBC 4.17 Mil/uL (4.40-5.90) L 04/25/18 06:00 Hgb 11.8 g/dL (12.0-18.0) L 04/25/18 06:00 Hct 34.7 % (35.0-51.0) L 04/25/18 06:00 MCV 83.2 fl (80.0-94.0) 04/25/18 06:00 MCH 28.3 pg (27.0-31.0) 04/25/18 06:00 MCHC 34.0 g/dL (33.0-37.0) 04/25/18 06:00 RDW 13.9 % (11.5-14.5) 04/25/18 06:00 Plt Count 146 K/uL (130-400) 04/25/18 06:00 MPV 8.4 fl (7.2-11.7) 04/23/18 06:00 Neut % (Auto) 71.6 % (50.0-75.0) 04/23/18 06:00 Lymph % (Auto) 18.0 % (20.0-40.0) L 04/23/18 06:00 [place] % (Auto) 9.7 % (0.0-10.0) 04/23/18 06:00 Eos % (Auto) 0.5 % (0.0-4.0) 04/23/18 06:00 Baso % (Auto) 0.2 % (0.0-2.0) 04/23/18 06:00 Neut # (Auto) 7.9 K/uL (1.8-7.0) H 04/23/18 06:00 Lymph # (Auto) 2.0 K/uL (1.0-4.3) 04/23/18 06:00 [place] # (Auto) 1.1 K/uL (0.0-0.8) H 04/23/18 06:00 Eos # (Auto) 0.1 K/uL (0.0-0.7) 04/23/18 06:00 Baso # (Auto) 0.0 K/uL (0.0-0.2) 04/23/18 06:00 Sodium 136 mmol/l (132-148) 04/25/18 06:00 Potassium 4.1 MMOL/L (3.6-5.0) 04/25/18 06:00 Chloride 98 mmol/L (98-107) 04/25/18 06:00 Carbon Dioxide 29 mmol/L (22-30) 04/25/18 06:00 Anion Gap 13 (10-20) 04/25/18 06:00 BUN 10 mg/dl (9-20) 04/25/18 06:00 Creatinine 0.8 mg/dl (0.8-1.5) 04/25/18 06:00 Est GFR ( Amer) > 60 04/25/18 06:00 Est GFR (Non-Af Amer) > 60 04/25/18 06:00 Random Glucose 134 mg/dL (75-110) H 04/25/18 06:00 Hemoglobin A1c 7.9 % (4.2-6.5) H 04/25/18 06:00 Calcium 8.9 mg/dL (8.4-10.2) 04/25/18 06:00 Total Bilirubin 0.6 mg/dl (0.2-1.3) 04/25/18 06:00 AST 56 U/L (17-59) 04/25/18 06:00 ALT 39 U/L (21-72) 04/25/18 06:00 Alkaline Phosphatase 81 U/L (38-126) 04/25/18 06:00 Total Protein 7.7 G/DL (6.3-8.2) 04/25/18 06:00 Albumin 3.5 g/dL (3.5-5.0) 04/25/18 06:00 Globulin 4.2 gm/dL (2.2-3.9) H 04/25/18 06:00 Albumin/Globulin Ratio 0.8 (1.0-2.1) L 04/25/18 06:00 - Hospital Course Hospital Course: 33 yr old M with PMHx of right ankle fracture 10 yrs ago admitted for right ankle surgery due to severe right ankle arthritis with valgus malalignment. Patient is s/p day#3, right ankle arthrodesis with plate and screw fixation with graft and popliteal nerve block. Normal post op progression, no complications, patient was able to perform well in PT. Pain is well controlled, s/p ancef, NWB RLE with crutches. Patient is cleared for discharge by PT and podiatry, patient to follow up with Dr. Orellana, Podiatry as out patient. Continue DVT ppx, antibiotics and pain management as per Dr. Orellana. Follow up Dr. Orellana in one week. Discharge Exam - Head Exam Head Exam: NORMAL INSPECTION - Eye Exam Eye Exam: Normal appearance, PERRL Pupil Exam: NORMAL ACCOMODATION - ENT Exam ENT Exam: Mucous Membranes Moist - Neck Exam Neck exam: Full Rom - Respiratory Exam Respiratory Exam: Clear to PA & Lateral, NORMAL BREATHING PATTERN - Cardiovascular Exam Cardiovascular Exam: REGULAR RHYTHM - GI/Abdominal Exam GI & Abdominal Exam: Normal Bowel Sounds - Extremities Exam Additional comments: AO splint clean/dry/intact on right able to wiggle toes, sensory intact No pain upon calf squeeze - Back Exam Back exam: absent: CVA tenderness (L), CVA tenderness (R) - Neurological Exam Neurological exam: Alert, Oriented x3 - Psychiatric Exam Psychiatric exam: Normal Affect, Normal Mood - Skin Skin Exam: Dry, Intact, Normal Color Discharge Plan - Follow Up Plan Condition: GOOD Disposition: HOME/ ROUTINE Instructions: Arthrodesis of Foot and Ankle, Open Surgery, Weight-Bearing Restrictions, Going Up and Down Curbs or Stairs With a Walker or Crutches Additional Instructions: follow up with primary MD and surgeon 1 week Referrals: FAMILY PROVIDER,NO [Primary Care Provider] - Paloma Orellana DPM [Staff Provider] -
== END 2018-04-25 14:23 | disposition home or self-care (01) | DRG 494 ==
LOC: H.OPSURG 10:48 → H.MEDSURG1 21:53
PROVIDERS: ADMIT Family Medicine Geriatric Medicine; ATTEND Family Medicine Geriatric Medicine
PROC: 0SGF0ZZ (ICD-10-PCS; principal; 2018-04-22 12:30)
PROC: 3E0T3BZ Introduction of Anesthetic Agent into Peripheral Nerves and Plexi, Percutaneous Approach (ICD-10-PCS; 2018-04-22 12:30)
PROC: 3E0T3BZ Introduction of Anesthetic Agent into Peripheral Nerves and Plexi, Percutaneous Approach (ICD-10-PCS; 2018-04-22 12:30)
PROC: 3E0234Z Introduction of Serum, Toxoid and Vaccine into Muscle, Percutaneous Approach (ICD-10-PCS; 2018-04-23)
DX: M12.571 Traumatic arthropathy, right ankle and foot (principal); M21.071 Valgus deformity, not elsewhere classified, right ankle; Z72.0 Tobacco use; Z23 Encounter for immunization

== ENCOUNTER 2018-06-23 11:36 | Emergency (ER) | payer OTHER ==
[2018-06-23 11:36] VITALS: BMI 48.7
--- NOTE | 2018-06-23 12:25 | ED PDOC ---
Lower Extremity Pain/Injury Time Seen by Provider: 06/23/18 12:09 Chief Complaint (Nursing): Lower Extremity Problem/Injury Chief Complaint (Provider): Lower Extremity Problem/Injury History Per: Patient History/Exam Limitations: no limitations Onset/Duration Of Symptoms: Persistent (x2 months) Current Symptoms Are (Timing): Still Present Additional Complaint(s): 33 year old male arrives to ED with a complaint of inner right thigh to calf pain with burning sensation status post right ankle arthrodesis surgery performed on 04/22/[address] Orellana. Patient was advised to take prescribed Lovenox shots but admitted to missing dosage for [address] Orellana told him to restart medication and patient has been compliant since. He denies any chest pain, shortness of breath, hemptosis, history of DVT or PE. - Risk Factors DVT Risk Factors: Pos: Major Surgery Past Medical History Reviewed: Historical Data, Nursing Documentation, Vital Signs Vital Signs: Last Vital Signs Temp 98.1 F 06/23/18 12:07 Pulse 105 H 06/23/18 12:07 Resp 19 06/23/18 12:07 BP 162/91 H 06/23/18 12:07 Pulse Ox 97 06/23/18 12:07 - Medical History PMH: No Chronic Diseases Denies: Chronic Kidney Disease - Surgical History Surgical History: Denies: No Surg Hx Other surgeries: right foot 04/22/18 - Family History Family History: States: Unknown Family Hx - Social History Current smoker - smoking cessation education provided: Yes Alcohol: None Drugs: Denies - Home Medications Home Medications: Ambulatory Orders Medication Instructions Recorded No Known Home Med 04/22/18 - Allergies Allergies/Adverse Reactions: Allergies Allergy/AdvReac Type Severity Reaction Status Date / Time No Known Allergies Allergy Verified 06/23/18 11:57 Review of Systems ROS Statement: Except As Marked, All Systems Reviewed And Found Negative Cardiovascular: Negative for: Chest Pain Respiratory: Negative for: Shortness of Breath, Hemoptysis Musculoskeletal: Positive for: Foot Pain (right-sided inner thigh to calf) Physical Exam - Reviewed Nursing Documentation Reviewed: Yes Vital Signs Reviewed: Yes - Physical Exam Appears: Positive for: Non-toxic, No Acute Distress Eye Exam: Positive for: EOMI, Normal appearance, PERRL Cardiovascular/Chest: Positive for: Regular Rate, Rhythm. Negative for: Tachycardia Respiratory: Positive for: Normal Breath Sounds. Negative for: Respiratory Distress Extremity: Positive for: Capillary Refill (<2 seconds of right LE), Other ( right LE in cast (-) visible edema) Neurologic/Psych: Positive for: Alert (x3), Oriented - ECG O2 Sat by Pulse Oximetry: 97 (RA) Pulse Ox Interpretation: Normal Medical Decision Making Medical Decision Making: Initial Impression: Right leg pain s/p foot surgery Initial Plan: * Podiatry and anesthesiology consult * Xray ankle/foot (right) * US duplex vein (right) Time: 1235 --Spoke with podiatry resident, Fabienne, who removed cast for further exam and requesting xrays. --Discussed case with anesthesiologist, Dr. Marshall. Will see patient at bedside. Time: 1400 --Xray ankle (right) FINDINGS: BONES: Evidence of ankle fusion. No evidence of orthopedic hardware failure. JOINTS: Normal. No osteoarthritis. Ankle mortise maintained. Talar dome intact SOFT TISSUES: Normal. OTHER FINDINGS: None. IMPRESSION: No significant interval change compared to the prior examination(s). Time: 1406 --Xray foot (right) FINDINGS: BONES: Radiographic findings of ankle fusion. JOINTS: Degenerative changes affecting tarsal bones, mild. SOFT TISSUES: Normal. OTHER FINDINGS: None. IMPRESSION: Postoperative findings without evidence of hardware failure. No visible acute abnormalities. Time: 1444 --US extremity (right) FINDINGS: COMMON FEMORAL VEIN: Unremarkable. SUPERFICIAL FEMORAL VEIN: Unremarkable. POPLITEAL VEIN: Unremarkable. POSTERIOR TIBIAL VEIN: Unremarkable. OTHER FINDINGS: None. IMPRESSION: No evidence of deep venous thrombosis in the right lower extremity. Time: 1500 Dr. Diallo, anesthesiologist, in ED and evaluated pt. Recommends neuro f/u. States burning sensation is unlikely due to nerve block. Fabienne, podiatry resident, casted leg again. Advised to continue lovenox as previously prescribed. Scribe Attestation: Documented by Gabriella Jules, acting as a scribe for Toby Santo PA-C. Provider Scribe Attestation: All medical record entries made by the Scribe were at my direction and personally dictated by me. I have reviewed the chart and agree that the record accurately reflects my personal performance of the history, physical exam, medical decision making, and the department course for this patient. I have also personally directed, reviewed, and agree with the discharge instructions and disposition. Disposition - Clinical Impression Clinical Impression: Leg pain - Patient ED Disposition Is Patient to be Admitted: No - Disposition Referrals: Shaheen Hager MD [Medical Doctor] - Paloma Orellana DPM [Staff Provider] - Disposition: Routine/Home Disposition Time: 15:00 Condition: STABLE Additional Instructions: GHAZAL NAVA, thank you for letting us take care of you today. Your provider was Aniyah Hanna MD and you were treated for RT LEG PAIN. The emergency medical care you received today was directed at your acute symptoms. If you were prescribed any medication, please fill it and take as directed. It may take several days for your symptoms to resolve. Return to the Emergency Department if your symptoms worsen, do not improve, or if you have any other problems. Please contact your doctor or call one of the physicians/clinics you have been referred to that are listed on the Patient Visit Information form that is included in your discharge packet. Bring any paperwork you were given at discharge with you along with any medications you are taking to your follow up visit. Our treatment cannot replace ongoing medical care by a primary care provider outside of the emergency department. Thank you for allowing the [facility] team to be part of your care today. If you had an X-Ray or CT scan: A Radiologist will review the ED reading if any change in treatment is needed we will contact you. If you had a blood, urine, or wound culture: It will take several days for the results, if any change in treatment is needed we will contact you. If you had an STI test: It will take 48 hours for the results. Please call after 1 week if you have not heard back. Instructions: Cast Care, How to Use Crutches Forms: [facility] (Portuguese) Print Language: CITIZ[place]
--- NOTE | 2018-06-23 13:37 | CP.PCM.CON ---
History of Present Illness - History of Present Illness History of Present Illness: 33 y/o male who presents to the ED with a burning sensation from the right inner leg extending distally to mid leg. Patient had an ankle arthrodesis surgery on 04/22/[address] Paloma Orellana, with Popliteal block by anesthesiologist , and he notes that the pain began the day after surgery. The pain has not resolved, is burning in nature, and feels hot. After the procedure, the patient was prescribed Lovenox shots by Dr. Orellana, however he stopped taking the medication because he felt it wasn't helping his burning sensations. Dr. Orellana advised him to continue taking the medication and he has been compliant taking the medication since. He denies any other pedal complaints at this time. Patient denies calf pain. He denies any pain to surgery site. Denies N/V/F/SOB/ CP/C. PMHx: denies Social: Tobacco use ALL: NKDA Review of Systems - Review of Systems Review of Systems: As per HPI Past Patient History - Past Medical History & Family History Past Medical History?: No - Past Social History Alcohol: None Drugs: Denies - CARDIAC Hx Cardiac Disorders: No - PULMONARY Hx Respiratory Disorders: No - NEUROLOGICAL Hx Neurological Disorder: No - HEENT Hx HEENT Problems: No - RENAL Hx Chronic Kidney Disease: No - ENDOCRINE/METABOLIC Hx Endocrine Disorders: No - HEMATOLOGICAL/ONCOLOGICAL Hx Blood Disorders: No - INTEGUMENTARY Hx Dermatological Problems: No - MUSCULOSKELETAL/RHEUMATOLOGICAL Hx Musculoskeletal Disorders: No - GASTROINTESTINAL Hx Gastrointestinal Disorders: No - GENITOURINARY/GYNECOLOGICAL Hx Genitourinary Disorders: No - PSYCHIATRIC Hx Psychophysiologic Disorder: No Hx Substance Use: No - SURGICAL HISTORY Hx Surgeries: No - ANESTHESIA Hx Anesthesia: No Hx Anesthesia Reactions: No Meds Allergies/Adverse Reactions: Allergies Allergy/AdvReac Type Severity Reaction Status Date / Time No Known Allergies Allergy Verified 06/23/18 11:57 Physical Exam - Constitutional Appears: Well, Non-toxic, No Acute Distress - Head Exam Head Exam: ATRAUMATIC, NORMOCEPHALIC - Extremities Exam Additional comments: Vascular: DP/PT pulses 1/4, CFT < 3 seconds to all 10 digit. TG WNL. +2 pitting edema to dorsal aspect of right foot Ortho: Tenderness to palpation of ankle arthrodesis site. No calf pain upon right calf compression Neuro: Gross and protective sensation intact bilaterally. Derm: Surgical site intact, skin edges well coapted, no evidence of dehiscence, no open lesions. Xerosis noted to right plantar foot. Interdigital maceration in 2nd-4th intersapce. No erythema noted to right calf. No erythema noted to right foot Results - Vital Signs Recent Vital Signs: Last Vital Signs Temp 98.1 F 06/23/18 12:07 Pulse 105 H 06/23/18 12:07 Resp 19 06/23/18 12:07 BP 162/91 H 06/23/18 12:07 Pulse Ox 97 06/23/18 13:11 Assessment & Plan - Assessment and Plan (Free Text) Assessment: 33 y/o male who presents to the ED with a burning sensation from the right inner leg extending distally to mid leg. Plan: Patient examined and evaluated with all questions and concerns addressed Discussed patient's plan in detail with Dr. Orellana Patients right short leg cast was removed with a cast cutter without incident US right lower extremity; no evidence of DVT in right lower extremity Ankle and Foot X-rays taken; Osseous bridging noted to arthrodesis site, hardware intact Dr. Diallo, Anesthesiologist, consulted by PA for evaluation of popliteal block site Short leg cast reapplied to patients right foot Patient to remain NWB to right lower extremity with the use of crutches or scooter Patient to F/U with Dr. Orellana in office for scheduled appointment on on July 06 - Date & Time Date: 06/23/18 Time: 17:41
--- NOTE | 2018-06-23 14:02 | RAD ---
Date of service: 06/23/2018 PROCEDURE: Right Ankle Radiographs. HISTORY: Right leg Pain. No history of recent/ related trauma provided COMPARISON: 04/22/2018. FINDINGS: BONES: Evidence of ankle fusion. No evidence of orthopedic hardware failure. JOINTS: Normal. No osteoarthritis. Ankle mortise maintained. Talar dome intact SOFT TISSUES: Normal. OTHER FINDINGS: None. IMPRESSION: No significant interval change compared to the prior examination(s).
--- NOTE | 2018-06-23 14:06 | RAD ---
Date of service: 06/23/2018 PROCEDURE: Right Foot Radiographs. HISTORY: Right leg pain COMPARISON: June 23, 2018. FINDINGS: BONES: Radiographic findings of ankle fusion. JOINTS: Degenerative changes affecting tarsal bones, mild. SOFT TISSUES: Normal. OTHER FINDINGS: None. IMPRESSION: Postoperative findings without evidence of hardware failure. No visible acute abnormalities.
--- NOTE | 2018-06-23 14:46 | US ---
Date of service: 06/23/2018 PROCEDURE: Right lower extremity venous duplex Doppler. HISTORY: pain COMPARISON: None available. TECHNIQUE: Common femoral, superficial femoral, popliteal and posterior tibial veins were evaluated. Flow was assessed with color Doppler, compressibility, assessment of phasic flow and augmentation response. FINDINGS: COMMON FEMORAL VEIN: Unremarkable. SUPERFICIAL FEMORAL VEIN: Unremarkable. POPLITEAL VEIN: Unremarkable. POSTERIOR TIBIAL VEIN: Unremarkable. OTHER FINDINGS: None. IMPRESSION: No evidence of deep venous thrombosis in the right lower extremity.
[2018-06-23 16:35] VITALS: BP 156/89; PULSE 97; RESP 16; TEMP 98.5
[2018-06-23 18:17] VITALS: O2SAT 97
== END 2018-06-23 16:35 | disposition home or self-care (01) ==
LOC: H.ER 11:36
DX: M79.604 Pain in right leg (principal); M25.571 Pain in right ankle and joints of right foot

== ENCOUNTER 2018-11-29 13:20 | Emergency (ER) | payer SELFPAY ==
[2018-11-29 13:29] VITALS: BMI 42.1
[2018-11-29 13:31] VITALS: TEMP 98.6
[2018-11-29] MEDS ORDERED: Sodium Chloride 0.9% 1,000 ML IV ONE (14:06)
[2018-11-29] MEDS ORDERED: Tdap Vaccine 0.5 ml Vial (10-64 yrs) IM ONE ×2 (14:13→14:28)
[2018-11-29] MEDS ORDERED: Vancomycin 1 g Inj ONE (14:16)
[2018-11-29 14:20] LABS: BASO # 0.1 K/uL (0.0-0.2); EOS # 0.3 K/uL (0.0-0.7); EOS % 4.9 % (0.0-4.0); HEMOGLOBIN 13.6 g/dL (12.0-18.0); LYMPH # 1.7 K/uL (1.0-4.3); LYMPH % 27.5 % (20.0-40.0); MEAN CELL VOLUME 84.4 fl (80.0-94.0); MEAN CORPUSCULAR HEMOGLOBIN 26.8 pg (27.0-31.0); MEAN CORPUSCULAR HGB CONC 31.8 g/dL (33.0-37.0); MEAN PLATELET VOLUME 9.2 fl (7.2-11.7); MONO # 0.5 K/uL (0.0-0.8); MONO % 8.4 % (0.0-10.0); NEUT # 3.6 K/uL (1.8-7.0); NEUT % 58.2 % (50.0-75.0); NRBC % 0.2 % (0.0-0.0); RBC 5.06 Mil/uL (4.40-5.90); RED CELL DISTRIBUTION WIDTH 14.3 % (11.5-14.5); WHITE BLOOD COUNT 6.1 K/uL (4.8-10.8)
[2018-11-29 14:31] LABS: BLOOD UREA NITROGEN 10 mg/dl (9-20); CALCIUM 9.5 mg/dL (8.4-10.2); GFR NON-AFRICAN AMERICAN > 60
--- NOTE | 2018-11-29 14:32 | ED PDOC ---
HPI: Skin/Bite Injury Time Seen by Provider: 11/29/18 13:34 Chief Complaint (Nursing): Abnormal Skin Integrity Chief Complaint (Provider): Abnormal Skin Integrity History Per: Patient History/Exam Limitations: no limitations Onset/Duration Of Symptoms: Days (1x month) Current Symptoms Are (Timing): Still Present Quality Of Symptoms: Painful Additional Complaint(s): 33 year old male with a past medical history of abscesses presents to the ED for an evaluation of an enlarging abscess with localized pain to the mid back ongoing for 1x month. Patient reports putting off evaluation and treatment due to insurance issues. Patient denies taking medications prior to arrival. Patient reports having a history of recurrent abscesses which resolve spontaneously after they drain, but this abscess has not drained yet. Otherwise: (-) fevers, (-) chills, (-) other complaints,(-) recent antibiotic use. Tetanus not up to date. PMD: None Past Medical History Reviewed: Historical Data, Nursing Documentation, Vital Signs Vital Signs: Last Vital Signs Temp 98.6 F 11/29/18 13:30 Pulse 104 H 11/29/18 13:30 Resp 17 11/29/18 13:30 BP 128/84 11/29/18 13:30 Pulse Ox 97 11/29/18 13:30 SHAUNA Report Viewed: Yes - Medical History Other PMH: recurrent abscess - Surgical History Other surgeries: right foot and ankle surgery - Family History Family History: States: Diabetes - Social History Current smoker - smoking cessation education provided: Yes (1ppd) - Immunization History Hx Tetanus Toxoid Vaccination: No (not up to date) - Home Medications Home Medications: Ambulatory Orders Medication Instructions Recorded Amoxicillin/Clavulanate [Augmentin 1 tab PO BID #20 tab 11/29/18 875 MG-125 MG] Docusate [Colace] 100 mg PO DAILY PRN #10 cap 11/29/18 RX: Naproxen 500 mg PO BID PRN #20 tab 11/29/18 RX: metFORMIN [glucOPHAGE] 500 mg PO BID #60 tab 11/29/18 oxyCODONE/Acetaminophen [Percocet 1 ea PO Q6 PRN #12 tab 11/29/18 5/325 mg Tab] RX: Clindamycin [Cleocin] 300 mg PO TID #21 cap 12/02/18 - Allergies Allergies/Adverse Reactions: Allergies Allergy/AdvReac Type Severity Reaction Status Date / Time No Known Allergies Allergy Verified 06/23/18 11:57 Review of Systems ROS Statement: Except As Marked, All Systems Reviewed And Found Negative Constitutional: Negative for: Fever, Chills Musculoskeletal: Positive for: Back Pain (abscess to mid back with localized pain) Physical Exam - Reviewed Nursing Documentation Reviewed: Yes Vital Signs Reviewed: Yes - Physical Exam Comments: GENERAL APPEARANCE: Patient is awake, alert, oriented x 3, in no acute distress, resting comfortably. SKIN: Warm, dry; (-) cyanosis. EYES: (-) conjunctival pallor, (-) scleral icterus. ENMT: Mucous membranes moist. Airway patent, (-) stridor. NECK: Supple, FROM CHEST AND RESPIRATORY: (-) rales, (-) rhonchi, (-) wheezes; breath sounds equal bilaterally. Respirations even and nonlabored. HEART AND CARDIOVASCULAR: (-) irregularity ABDOMEN AND GI: Soft (-) distention. Bowel sounds active x4; (-)tenderness (-) guarding, (-) rebound, (-) palpable masses, (-) CVA tenderness. BACK: To the left parathoracic mid back: 7cm x 8cm erythematous abscess with (+) fluctuance and (+) tenderness. (-) surrounding cellulitis, (-) midline tenderness. EXTREMITIES: (-) deformity NEURO AND PSYCH: Mental status as above; (-) focal findings. Gait: steady. Speech: clear. (-) facial asymmetry (-) aphasia - Laboratory Results Result Diagrams: 11/29/18 14:10 11/29/18 14:10 - ECG O2 Sat by Pulse Oximetry: 97 (RA) Pulse Ox Interpretation: Normal Medical Decision Making Medical Decision Makin:35 Clinical impression: 33 year old male with an abscess. Initial plan: * consult placed to general surgery resident * BMP * CBC with differential * adacel 10-64 yrs 0.5 ml IM * IV NS 1000 ml IV 1,000 mls/hr * ultram 50 mg PO * vancomycin inj 1 gm in IV NS 250 ml IVPB 14:10 Mike Hillman surgical tech at patient's bedside. 1425 Labs reviewed. CBC with no leukocytosis or neutrophil shift. CMP (+) hyperglycemia. Patient denies any personal history of DM but reports family history of DM. 8 units insulin ordered. Case discussed with ED MD Junior, who states that after surgical tech drains abscess, patient can be sent home on Metformin and follow up outpatient for further glycemic control. Patient educated on results and diabetes diet. Exercise/weight loss encouraged. 1500 Dr Quigley, surgeon, at bedside. Patient to follow up with Dr Quigley on 12/02/18. Recommends patient be discharged with Rx for Percocet and Augmentin. Patient pending I&D procedure by surgical tech. 1530 plant operations vice president bedside. Requesting Lidocaine 2% IJ for procedure. 1615 Wound culture and gram stain ordered. [facility] Repeat accucheck: 210 Repeat HR: 87 On re-evaluation, patient reports improvement of symptoms. On exam, patient remains AAOx3, in no acute distress. Lungs clear to auscultation, cardiac RRR, abdomen soft, non-tender, repeat neuro exam shows no focal findings. Vitals stable. Lab/Diagnostic results d/w the patient in great detail. Diagnosis of abscess, hyperglycemia, new onset type 2 DM d/w the patient. Based on history, exam and diagnostic results, plan will be for outpatient follo w up with PMD/clinic/Surgery ([facility]). Patient instructed to follow-up with pmd / referral provided / the clinic in 1- 2 days without fail. Advised to take medication as prescribed. Return to the [facility] room at any time for any new or worsening symptoms. Patient states he fully agrees with and understands discharge instructions. States that he agrees with the plan and disposition. Verbalized and repeated discharge instructions and plan. I have given the patient opportunity to ask any additional questions. Scribe Attestation: Documented Juan Carlos Doty, acting as a scribe for Leila Castorena Provider Scribe Attestation: All medical record entries made by the Scribe were at my direction and personally dictated by me. I have reviewed the chart and agree that the record accurately reflects my personal performance of the history, physical exam, medical decision making, and the department course for this patient. I have also personally directed, reviewed, and agree with the discharge instructions and disposition. Disposition - Clinical Impression Clinical Impression: Abscess, Hyperglycemia, New onset type 2 diabetes mellitus - Patient ED Disposition Is Patient to be Admitted: No Discussed With .: Fernando Quigley Doctor Will See Patient In The: Office (on 12/02/18) Counseled Patient/Family Regarding: Studies Performed, Diagnosis, Need For Followup, Rx Given - Disposition Referrals: Fernando Quigley MD [Staff Provider] - [facility] [Outside] Disposition: Routine/Home Disposition Time: 16:15 Condition: STABLE Additional Instructions: FOLLOW UP WITH DR QUIGLEY ON 12/02/18 DIRECTED. TAKE ANTIBIOTICS UNTIL COMPLETE. PLEASE FOLLOW UP WITH CLINIC OR FIND A PCP FOR FURTHER MANAGEMENT OF YOUR SUGAR. FOLLOW DIET/WEIGHT LOSS RECOMMENDATIONS DISCUSSED IN ED. The emergency medical care you received today was directed at your acute symptoms. If you were prescribed any medication, please fill it and take as directed. It may take several days for your symptoms to resolve. Return to the Emergency Department if your symptoms worsen, do not improve, or if you have any other problems. Please contact your doctor in 2 days for re-evaluation and follow up / or call one of the physicians/clinics you have been referred to that are listed on the Patient Visit Information form that is included in your discharge packet. Bring any paperwork you were given at discharge with you along with any medications you are taking to your follow up visit. Our treatment cannot replace ongoing medical care by a primary care provider (PCP) outside of the emergency department. Prescriptions: Amoxicillin/Clavulanate [Augmentin 875 MG-125 MG] 1 tab PO BID #20 tab RX: Clindamycin [Cleocin] 300 mg PO TID #21 cap Docusate [Colace] 100 mg PO DAILY PRN #10 cap PRN Reason: Constipation RX: metFORMIN [glucOPHAGE] 500 mg PO BID #60 tab RX: Naproxen 500 mg PO BID PRN #20 tab PRN Reason: Pain, Moderate (4-7) oxyCODONE/Acetaminophen [Percocet 5/325 mg Tab] 1 ea PO Q6 PRN #12 tab PRN Reason: Pain, Severe (8-10) Instructions: Type 2 Diabetes, Boil, Hyperglycemia, Adult, Abscess Incision and Drainage, Diabetes Diet , Wound Care, Diabetes Type 2 (DC), Preventing Type 2 Diabetes, The ABCs of Diabetes, Treatment for Type 2 Diabetes, Diabetes and Infections, How to Keep Track of Your Blood Sugar Forms: [employer] (Syriac), [facility] ED School/Work Excuse Print Language: BHUTANESE - POA Present On Arrival: Poor Glycemic Control Results - Lab Results Lab Results: 11/29/18 11/29/18 14:10 14:10 WBC 6.1 RBC 5.06 Hgb 13.6 Hct 42.7 MCV 84.4 MCH 26.8 L MCHC 31.8 L RDW 14.3 Plt Count 202 MPV 9.2 Neut % (Auto) 58.2 Lymph % (Auto) 27.5 [place] % (Auto) 8.4 Eos % (Auto) 4.9 H Baso % (Auto) 1.0 Neut # (Auto) 3.6 Lymph # (Auto) 1.7 [place] # (Auto) 0.5 Eos # (Auto) 0.3 Baso # (Auto) 0.1 Sodium 135 Potassium 4.5 Chloride 99 Carbon Dioxide 26 Anion Gap 15 BUN 10 Creatinine 0.7 L Est GFR ( Amer) > 60 Est GFR (Non-Af Amer) > 60 Random Glucose 330 H Calcium 9.5
[2018-11-29] MEDS ORDERED: Insulin Regular 100 units/ml ONE (15:10)
--- NOTE | 2018-11-29 15:12 | CP.PCM.CON ---
History of Present Illness - History of Present Illness History of Present Illness: 33 y.o. male comes to the hospital c/o abscess to the back that he had for the last month and was progressively getting worse. Patient denies any fever or chills. Reports pain to the back around the abscess. No other complains at pr esent time. Review of Systems - Constitutional Constitutional: As Per HPI - EENT Eyes: Other (unremarkable) Ears: Other (unremarkable) Nose/Mouth/Throat: Other (unremarkable) - Cardiovascular Cardiovascular: Other (unremarkable) - Respiratory Respiratory: Other (unremarkable) - Gastrointestinal Gastrointestinal: Other (unremarkable) - Genitourinary Genitourinary: Other (unremarkable) - Reproductive: Male Reproductive:Male: Other (unremarkable) - Musculoskeletal Musculoskeletal: Other (unremarkable) - Integumentary Integumentary: As Per HPI - Neurological Neurological: Other (unremarkable) - Psychiatric Psychiatric: Other (unremarkable) Past Patient History - Past Medical History & Family History Past Medical History?: No - Past Social History Smoking Status: Heavy Smoker > 10 Cigarettes Daily - CARDIAC Hx Cardiac Disorders: No - PULMONARY Hx Respiratory Disorders: No - NEUROLOGICAL Hx Neurological Disorder: No - HEENT Hx HEENT Problems: No - RENAL Hx Chronic Kidney Disease: No - ENDOCRINE/METABOLIC Hx Endocrine Disorders: No - HEMATOLOGICAL/ONCOLOGICAL Hx Blood Disorders: No - INTEGUMENTARY Hx Dermatological Problems: No - MUSCULOSKELETAL/RHEUMATOLOGICAL Hx Musculoskeletal Disorders: No - GASTROINTESTINAL Hx Gastrointestinal Disorders: No - GENITOURINARY/GYNECOLOGICAL Hx Genitourinary Disorders: No - PSYCHIATRIC Hx Psychophysiologic Disorder: No Hx Substance Use: No - SURGICAL HISTORY Hx Surgeries: No - ANESTHESIA Hx Anesthesia: No Hx Anesthesia Reactions: No Meds Allergies/Adverse Reactions: Allergies Allergy/AdvReac Type Severity Reaction Status Date / Time No Known Allergies Allergy Verified 06/23/18 11:57 - Medications Medications: Current Medications Vancomycin HCl 1 gm/ Sodium (Chloride) 250 mls @ 166.667 mls/hr IVPB ONCE ONE; Protocol Stop: 11/29/18 15:31 Last Admin: 11/29/18 14:21 Dose: 166.667 mls/hr Insulin Human Regular (Humulin R) 8 units IVP ACCU-CHECK TR Physical Exam - Constitutional Appears: Well, Non-toxic, No Acute Distress - Head Exam Head Exam: ATRAUMATIC, NORMAL INSPECTION, NORMOCEPHALIC - Eye Exam Eye Exam: EOMI, Normal appearance, PERRL Pupil Exam: NORMAL ACCOMODATION, PERRL - ENT Exam ENT Exam: Mucous Membranes Moist, Normal Exam - Neck Exam Neck exam: Positive for: Full Rom, Normal Inspection - Respiratory Exam Respiratory Exam: Clear to Auscultation Bilateral, NORMAL BREATHING PATTERN - Cardiovascular Exam Cardiovascular Exam: REGULAR RHYTHM, +S1, +S2 - GI/Abdominal Exam GI & Abdominal Exam: Normal Bowel Sounds, Soft Additional comments: NT, ND, no rebound, no guarding, multiple small abscesses on the skin - Rectal Exam Rectal Exam: Deferred - Extremities Exam Extremities exam: Positive for: full ROM, normal inspection - Back Exam Back exam: NORMAL INSPECTION - Neurological Exam Neurological exam: Alert, CN II-XII Intact, Normal Gait, Oriented x3 - Psychiatric Exam Psychiatric exam: Normal Affect, Normal Mood - Skin Skin Exam: Dry, Intact, Normal Color, Warm Additional comments: 4x4 cm area of fluctuance with some erythema, mild purulent drainage Results - Vital Signs Recent Vital Signs: Last Vital Signs Temp 98.6 F 11/29/18 13:30 Pulse 104 H 11/29/18 13:30 Resp 17 11/29/18 13:30 BP 128/84 11/29/18 13:30 Pulse Ox 97 11/29/18 15:05 - Labs Result Diagrams: 11/29/18 14:10 11/29/18 14:10 Labs: Laboratory Results - last 24 hr 11/29/18 11/29/18 14:10 14:10 WBC 6.1 RBC 5.06 Hgb 13.6 Hct 42.7 MCV 84.4 MCH 26.8 L MCHC 31.8 L RDW 14.3 Plt Count 202 MPV 9.2 Neut % (Auto) 58.2 Lymph % (Auto) 27.5 [place] % (Auto) 8.4 Eos % (Auto) 4.9 H Baso % (Auto) 1.0 Neut # (Auto) 3.6 Lymph # (Auto) 1.7 [place] # (Auto) 0.5 Eos # (Auto) 0.3 Baso # (Auto) 0.1 Sodium 135 Potassium 4.5 Chloride 99 Carbon Dioxide 26 Anion Gap 15 BUN 10 Creatinine 0.7 L Est GFR ( Amer) > 60 Est GFR (Non-Af Amer) > 60 Random Glucose 330 H Calcium 9.5 Assessment & Plan - Assessment and Plan (Free Text) Assessment: 33 y.o. male with back abscess Plan: - Drain abscess at the bedside - Discharge home - Augmentin 875/125 mg po BID for 10 days on discharge - Patient will follow up with me in the office on 12/02/18
[2018-11-29] MEDS ORDERED: Lidocaine 2% Inj (20ml) IJ ONE (15:31)
[2018-11-29] MEDS ORDERED: Lidocaine 2% Inj (20ml) ONE (15:38)
[2018-11-29 16:53] VITALS: BP 135/82; PULSE 87; RESP 19
[2018-11-29] MEDS ORDERED: Insulin Regular 100 units/ml IVP SCH (17:00)
--- NOTE | 2018-11-29 17:01 | PCM.PROC ---
Incision and Drainage - Time Time Performed: 15:40 - Time Out Time Out: Side verified, Site verified, Patient ID confirmed, Sterile procedures obs. - Consent obtained Consent obtained: Written - Performed by Performed by: Mid-level Provider - Indications Indications: Cutaneous abscess - Contraindications Contraindications: None - Location Location: Skin abscess - Dimensions Dimensions Length cm: 4 Dimensions width cm: 4 - Anesthetic Technique Anesthetic Technique: Local - Anesthetic Anesthetic: Lidocaine 2% - Systemic Analgesia Systemic Analgesia: Other (tylenol) - Procedure Procedure: Usual prep and drape, cm incision (1.5), # scalpel used (11), Explored for loculations, Irrigated, Packed with sterile gauze (plain packing 1/2") - Drained Drained: ml pus (60) - Post-procedure Post procedure: Neurovascular status norm - Complications Complications: None - Patient tolerated procedure Patient tolerated procedure: Well
--- NOTE | 2018-11-29 17:08 | CP.PCM.PN ---
Subjective - Date & Time of Evaluation Date of Evaluation: 11/29/18 Time of Evaluation: 15:40 - Subjective Subjective: PROCEDURE NOTE PRE-OP DIAGNOSIS: Back abscess measuring ~4cm x 4cm POST-OP DIAGNOSIS: Same PROCEDURE: incision and drainage of back abscess PROCEDURE: A timeout protocol was performed prior to initiating the procedure. The area w as prepared and draped in the usual, sterile manner. The site was anesthetized with 2% lidocaine. A cruciate incision was made and about 60cc's of purulent material was expressed. The abscess was explored thoroughly and sequestered pockets were opened. Bleeding was minimal. Packing: Plain /" packing Followup: The patient tolerated the procedure well without complications. Standard post-procedure care was explained and return precautions were given. Objective - Vital Signs/Intake and Output Vital Signs (last 24 hours): Temp Pulse Resp BP Pulse Ox 98.6 F 87 19 135/82 98 11/29/18 13:30 11/29/18 16:53 11/29/18 16:53 11/29/18 16:53 11/29/18 16:53 - Labs Labs: 11/29/18 14:10 11/29/18 14:10
[2018-12-03 03:45] VITALS: O2SAT 97
== END 2018-11-29 16:53 | disposition home or self-care (01) ==
LOC: H.ER 13:20
DX: L02.212 Cutaneous abscess of back [any part, except buttock and flank] (principal); E11.65 Type 2 diabetes mellitus with hyperglycemia; F17.210 Nicotine dependence, cigarettes, uncomplicated; Z79.84 Long term (current) use of oral hypoglycemic drugs; Z83.3 Family history of diabetes mellitus; Z23 Encounter for immunization
CPT/HCPCS: 80048; 82948; 85025; 87070; 87181; 90471; 90715; 96374; 99283; J7030